=== PATIENT | male | born 1965 | race Caucasian/White ===

== ENCOUNTER 2019-02-16 10:11 | Inpatient (IN) ==
[~2019-02-16 10:11] MED LIST: CloNIDine Tab 0.1 MG TABLET PO ONE; FUROSEMIDE 10 MG/1 ML - 4 ML IVP ONE
--- NOTE | 2019-02-16 10:17 | EKG ---
[address] [address] Measurements Intervals [place] Rate: 70 P: 5 CO: 191 QRS: -11 QRSD: 106 T: 27 QT: 404 QTc: 425 Interpretive Statements SINUS RHYTHM No previous ECG available for comparison Electronically Signed On 02-16-19 13:37:57 MDT by Juanito Jones [email or web address]
[2019-02-16 10:23] LABS: BASOPHILS # (AUTO) 0.02 10*3/UL; BASOPHILS % (AUTO) 0.3 % (0-1); EOSINOPHILS % (AUTO) 1.6 % (0-8); Hematocrit [HCT] 49.1 % (42.0-52.0); Hemoglobin [HGB] 16.4 g/dL (14.0-18.0); LYMPHOCYTES # (AUTO) 1.87 10*3/uL; MEAN CORPUSCULAR HEMOGLOBIN 29.9 PG (27-31); MEAN CORPUSCULAR HGB CONC 33.4 g/dL (33-37); MEAN CORPUSCULAR VOLUME 89.6 FL (80-90); MEAN PLATELET VOLUME 9.9 FL (7.4-12.2); MONOCYTES # (AUTO) 0.61 10*3/UL (0.3-0.8); MONOCYTES % (AUTO) 9.7 % (5-15); NEUTROPHILS # (AUTO) 3.65 10*3/UL; NEUTROPHILS % (AUTO) 58.3 % (50-80); RED BLOOD COUNT 5.48 10^6/uL (4.70-6.10)
[2019-02-16 10:24] LABS: PLATELET MORPHOLOGY COMMENT NORMAL MORPHOLOGY (NORM); RBC MORPHOLOGY COMMENT NORMAL MORPHOLOGY (NORM); WBC MORPHOLOGY COMMENT NORMAL MORPHOLOGY (NORM)
[2019-02-16 10:32] LABS: BLOOD UREA NITROGEN 16 mg/dL (7-22); SERUM ALBUMIN 4.5 g/dL (3.5-4.8)
--- NOTE | 2019-02-16 11:14 | PDOC ---
General Adult HPI - General Chief Complaint: General Medical Stated Complaint: 40 pound weight gain/1 month Date Seen by Provider: 02/16/19 Time Seen by Provider: 10:05 Source: POSITIVE: Patient Exam Limitations: POSITIVE: No limitations Nurse's Notes Reviewed & Considered: Yes - History of Present Illness Initial Comment: The patient is a 54-year-old male who presents to the emergency department with complaints of increased weight gain and edema. He states that he is from [place] and has a history of hypertension. 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 He states that over the past 6 months he has gained 40 or 50 pounds, most of which over the past month or 2. He states that he was drinking salted beer regularly and in large amounts recently. After his legs started swelling up significantly he stopped drinking approximately a week ago. His swelling however has continued to worsen. He does report some increase shortness of breath especially with activity. He denies chest pain. Sonia tejada has been taking lisinopril HCTZ for blood pressure. He denies any significant medical history otherwise. He had initially presented to the walk-in clinic where his blood pressure was significantly elevated in the 200/120 range and he was subsequently referred here to the emergency department for evaluation. He does have a history of smoking however in recent years he has been vaping instead. Have you received a tetanus shot in the past 10 years?: Unknown - Patient Home Medications Home Medications: Home Medications Lisinopril/Hydrochlorothiazide [Lisinopril-Hctz 20-12.5 mg Tab] 1 tab PO DAILY 02/16/19 Lovastatin 1 tab PO DAILY 02/16/19 - Patient Allergies Allergies/Adverse Reactions: Allergies Allergy/AdvReac Type Severity Reaction Status Date / Time No Known Allergies Allergy Verified 02/16/19 11:00 Past Medical History - bozena LOOMIS History: Denies History Cardiovascular History: Hypertension Respiratory History: Denies History Gastrointestinal History: Denies History Genitourinary History: Denies History Endocrine History: Denies History Musculoskeletal History: Denies History Neurological History: Denies History Blood Disorders: Denies History Psychiatric History: Denies History History of Sexually Transmitted Diseases: No Male Reproductive History: Denies History Cancer History: Denies History In Past Year Been Physically Harmed or Verbally Threatened: No History of MDRO: No History of Other Communicable Diseases: No Tobacco Use: Never Smoker Type of alcohol normally used: Beer In the Past 12 Months, Have Used or Abuse Any Substance: None Previous Surgical History: No Anesthesia Reactions: No Malignant Hyperthermia: No Significant Family History: Heart disease, COPD, Diabetes, Hypertension Past Medical History Reviewed: Reviewed - No Changes ROS - Limitations ROS Limitations: No Limitations Constitution: DENIES: Chills, Fever Cardiovascular: REPORTS: Blood Pressure Problem, Edema. DENIES: Chest Pain, Heart Palpitations Respiratory: REPORTS: Shortness Of Breath. DENIES: Cough Non Productive, Cough Productive Neurological: DENIES: Headache, Numbness, Weakness Gastrointestinal: REPORTS: Nausea, Vomitting. DENIES: Abdominal Pain Musculoskeletal: REPORTS: Denies MS Symptoms Genitourinary: REPORTS: Denies Symptoms Eyes: REPORTS: Denies Symptoms ENT: REPORTS: Denies Symptoms Skin: DENIES: Rash General Adult Exam - General Appearance General Appearance: POSITIVE: Alert, Cooperative, No Acute Distress - HEENT HEENT: POSITIVE: Head Inspection Nml, Eyes Inspection Nml, Ears Inspection Nml, Pharynx Inspect. Nml - Neck Neck: POSITIVE: Normal Inspection. NEGATIVE: Lymphadenopathy - Respiratory Respiratory: POSITIVE: No Respiratory Distress, Breath Sounds Normal, Other (Decreased breath sounds bilaterally) - Cardiovascular Cardiovascular: POSITIVE: Regular Rate & Rhythm, No Murmur Peripheral Pulses: Dorsalis-pedis (R): 2+, Dorsalis-pedis (L): 2+ - Abdomen Abdomen: Soft: (All Quadrants), Denies Tenderness: (All Quadrants), No Distention: (All Quadrants) - Back Back: POSITIVE: Normal Inspection - Skin Skin: POSITIVE: Normal Color, No Rash - Extremities Additional Extremities Details: The patient does have marked edema of the lower extremities bilaterally, good results pedis pulses bilaterally General Adult Progress - Results Reviewed by me Xrays/CTs/US Reviewed by me: Yes Discussed with Radiologist: Yes Radiology Findings: Chest x-ray shows cardiomegaly with no other acute findings per radiologist. CT of the chest shows no evidence of PE, evidence of elevated right-sided pressures per radiologist. Ultrasound of both lower extremities are negative for DVT per radiologist. Lab Results Reviewed by Me: Yes Lab Results:: Laboratory Results 02/16/19 02/16/19 02/16/19 10:05 10:05 10:05 WBC 6.26 RBC 5.48 Hgb 16.4 Hct 49.1 MCV 89.6 MCH 29.9 MCHC 33.4 RDW Std Deviation 47.0 RDW Coeff of Alexandro 14.3 Plt Count 225 MPV 9.9 Immature Gran % (Auto) 0.2 Neut % (Auto) 58.3 Lymph % (Auto) 29.9 [place] % (Auto) 9.7 Eos % (Auto) 1.6 Baso % (Auto) 0.3 Immature Gran # (Auto) 0.01 Neut # (Auto) 3.65 Lymph # (Auto) 1.87 [place] # (Auto) 0.61 Eos # (Auto) 0.10 Baso # (Auto) 0.02 WBC Morphology Comment Normal morphology Plt Morphology Comment Normal morphology RBC Morph Comment Normal morphology D-Dimer 311 H Sodium 141 Potassium 4.0 Chloride 99 Carbon Dioxide 29 Anion Gap 13 BUN 16 Creatinine 1.0 Estimated GFR > 60 BUN/Creatinine Ratio 16.00 Glucose 86 Calculated Osmolality 291.0 Lactic Acid Calcium 9.4 Magnesium 1.9 Total Bilirubin 0.3 AST 32 ALT 45 Alkaline Phosphatase 58 Troponin I C-Reactive Protein 1.0 H NT-Pro-B Natriuret Pep 280 H Total Protein 7.9 Albumin 4.5 Globulin 3.4 Albumin/Globulin Ratio 1.30 TSH Ur Collection Type Urine Color Urine Clarity Urine pH Ur Specific Dwarf U Specif Grav (Refrac) Urine Protein Urine Glucose (UA) Urine Ketones Urine Occult Blood Urine Nitrate Urine Bilirubin Urine Urobilinogen Ur Leukocyte Esterase Ur Culture Indicated? Urine Opiates Screen Ur Buprenorphine Ur Oxycodone Screen Urine Methadone Screen Ur Propoxyphene Screen Barbiturate Screen U Tricyclic Antidepress Phencyclidine Screen Amphetamines Screen U Methamphetamines Scrn Benzodiazepines Screen Cocaine Screen U Marijuana (THC) Screen Serum Alcohol 10 02/16/19 02/16/19 02/16/19 10:05 10:05 10:05 WBC RBC Hgb Hct MCV MCH MCHC RDW Std Deviation RDW Coeff of Alexandro Plt Count MPV Immature Gran % (Auto) Neut % (Auto) Lymph % (Auto) [place] % (Auto) Eos % (Auto) Baso % (Auto) Immature Gran # (Auto) Neut # (Auto) Lymph # (Auto) [place] # (Auto) Eos # (Auto) Baso # (Auto) WBC Morphology Comment Plt Morphology Comment RBC Morph Comment D-Dimer Sodium Potassium Chloride Carbon Dioxide Anion Gap BUN Creatinine Estimated GFR BUN/Creatinine Ratio Glucose Calculated Osmolality Lactic Acid 1.0 Calcium Magnesium Total Bilirubin AST ALT Alkaline Phosphatase Troponin I 0.024 C-Reactive Protein NT-Pro-B Natriuret Pep Total Protein Albumin Globulin Albumin/Globulin Ratio TSH 2.45 Ur Collection Type Urine Color Urine Clarity Urine pH Ur Specific Dwarf U Specif Grav (Refrac) Urine Protein Urine Glucose (UA) Urine Ketones Urine Occult Blood Urine Nitrate Urine Bilirubin Urine Urobilinogen Ur Leukocyte Esterase Ur Culture Indicated? Urine Opiates Screen Ur Buprenorphine Ur Oxycodone Screen Urine Methadone Screen Ur Propoxyphene Screen Barbiturate Screen U Tricyclic Antidepress Phencyclidine Screen Amphetamines Screen U Methamphetamines Scrn Benzodiazepines Screen Cocaine Screen U Marijuana (THC) Screen Serum Alcohol 02/16/19 11:07 WBC RBC Hgb Hct MCV MCH MCHC RDW Std Deviation RDW Coeff of Alexandro Plt Count MPV Immature Gran % (Auto) Neut % (Auto) Lymph % (Auto) [place] % (Auto) Eos % (Auto) Baso % (Auto) Immature Gran # (Auto) Neut # (Auto) Lymph # (Auto) [place] # (Auto) Eos # (Auto) Baso # (Auto) WBC Morphology Comment Plt Morphology Comment RBC Morph Comment D-Dimer Sodium Potassium Chloride Carbon Dioxide Anion Gap BUN Creatinine Estimated GFR BUN/Creatinine Ratio Glucose Calculated Osmolality Lactic Acid Calcium Magnesium Total Bilirubin AST ALT Alkaline Phosphatase Troponin I C-Reactive Protein NT-Pro-B Natriuret Pep Total Protein Albumin Globulin Albumin/Globulin Ratio TSH Ur Collection Type Clean catch urine Urine Color Yellow Urine Clarity Clear Urine pH 6.0 Ur Specific Dwarf 1.010 U Specif Grav (Refrac) 1.010 Urine Protein Negative Urine Glucose (UA) Negative Urine Ketones Negative Urine Occult Blood Negative Urine Nitrate Negative Urine Bilirubin Negative Urine Urobilinogen 0.2 Ur Leukocyte Esterase Negative Ur Culture Indicated? Culture not set Urine Opiates Screen Negative Ur Buprenorphine Negative Ur Oxycodone Screen Negative Urine Methadone Screen Negative Ur Propoxyphene Screen Negative Barbiturate Screen Negative U Tricyclic Antidepress Negative Phencyclidine Screen Negative Amphetamines Screen Negative U Methamphetamines Scrn Negative Benzodiazepines Screen Negative Cocaine Screen Negative U Marijuana (THC) Screen Negative Serum Alcohol CBC and BMP: 02/16/19 10:05 02/16/19 10:05 EKG Interpreted/Reviewed By Me:: Yes EKG Interpretation:: POSITIVE: Normal Sinus Rhythm, Normal Rate, Normal QRS, Normal ST/T, Other (Minimal criteria for LVH) - Patient's Progress MDM / ED Course: On arrival the patient's blood pressure was 242/143. His oxygen saturations were 85% on room air. He was placed on O2 per nasal cannula. The patient does have marked edema in the lower extremities and is relatively asymptomatic otherwise. An IV was established. The patient did receive clonidine 0.1 mg by mouth as well as Lasix 40 mg IV. Chest x-ray showed cardiomegaly with no other acute findings per radiologist. EKG shows normal sinus rhythm with some criteria for LVH, no acute ST segment or T-wave changes. Blood work reveals a normal troponin, normal CBC, normal CMP. His BNP is only mildly elevated at 280. His blood pressure came down primarily into the 180s over 110s after administration of initial medications. His d-dimer ended up being mildly elevated at 300. Subsequent CTA of the chest shows no evidence of PE, evidence of right-sided heart failure per radiologist. Bilateral lower extremity ultrasound showed no evidence of DVT. His oxygen saturations remained in the upper 80s to mid-80s on room air and were maintained in the mid 90s on 2 L. Decision was made to admit the patient for further diuresis and blood pressure control. I did discuss these findings and recommendations with the patient and he is in agreement with this plan. I also discussed the patient with Dr. Norris and he has agreed to admit the patient for further care. He did recommend that the patient receive lisinopril 40 mg. - Consult Counseled: POSITIVE: Patient, RE: Lab Results, RE: Radiology Results, RE: DX, RE: Need for F/U Patient Care Time - Estimated PCT Patient Care Time (In Minutes): 50 Vital Signs - Recent Vital Signs Vital Signs: Vital Signs (Last 8 hours) Temp Pulse Pulse Resp BP Pulse Ox 02/16/19 10:56 95 02/16/19 10:00 97.2 F 80 80 24 242/143 85 - VS Reviewed Vital Signs Reviewed: Yes Discharge Clinical Impression: Right-sided heart failure, Edema, Hypoxia, Hypertensive CHF Discharge Disposition: Discharged to Home Condition: Fair Follow Up With: NONE,NONE [Primary Care Provider] - Date Decision to Admit to Inpatient: 02/16/19 Time Decision to Admit to Inpatient: 14:00
[2019-02-16 11:24] LABS: BILIRUBIN,URINE NEGATIVE (NEG); CLARITY,URINE CLEAR (CLEAR); COLOR,URINE YELLOW (Y); GLUCOSE, URINE (UA) NEGATIVE (NEG); OCCULT BLOOD,URINE NEGATIVE (NEG); PROTEIN,URINE NEGATIVE (NEG); UROBILINOGEN,URINE 0.2 EU/dL (0.2)
[2019-02-16 11:32] LABS: URINE SAMPLE TYPE CLEAN CATCH URINE
[2019-02-16 11:33] LABS: AMPHETAMINE SCREEN NEGATIVE (NEG); CANNABINOID SCREEN,URINE NEGATIVE (NEG); COCAINE SCREEN NEGATIVE (NEG); METHADONE URINE SCREEN NEGATIVE (NEG); METHAMPHETAMINES SCREEN,URINE NEGATIVE (NEG); OPIATE SCREEN,URINE NEGATIVE (NEG)
--- NOTE | 2019-02-16 12:05 | DI ---
AP CHEST X-RAY, 02/16/2019 10:07 AM : Clinical History: Hypoxia. Previous Exam: None at this facility. Soft Tissues: No acute soft tissue abnormality. On this view, the patient took a shallow inspiration. Bones: Normal. Heart: Even for the shallow inspiratory effort, there is cardiomegaly. There is no evidence of left-s ided failure, but the azygos vein and superior vena cava silhouette are prominent and right heart lewis lure cannot be excluded. Lungs: No infiltrates. There is increased tortuosity of the vessels with suggestion of segmentation a long with increased interstitial markings. These findings are quite suggestive of chronic bronchitis. Effusion(s): None. Mediastinum: There may be pulmonary arterial hypertension. Nodules: No pulmonary nodules. Readin. No acute infiltrate or effusion. 2. Cardiomegaly. There are findings are suggestive of right heart failure and moderate chronic bronc hitis. These radiographic findings should be correlated with the clinical presentation and findings.
--- NOTE | 2019-02-16 13:37 | DI ---
CT ANGIOGRAM OF THE CHEST, 02/16/2019 11:47 AM : Clinical History: Hypoxia. Elevated D-dimer test. Previous Exam: None at this facility. Technique: Scans from base of neck to lung bases with IV contrast. Bolus tracking protocol was used f or timing the injection. Non-MIPS and MIPS sagittal/coronal images generated. IV Contrast: 70 mL of Ultravist 370. Base of Neck: Normal. Nodes: Normal axillary, supraclavicular, mediastinal, and hilar lymph nodes. Heart: Normal. Small isolated calcifications in the proximal and middle thirds of the LAD. Aorta: Normal thoracic aorta. No aneurysm or dissection. Pulmonary Arteries: No pulmonary emboli or infarcts; there is pulmonary hypertension. SVC/IVC and Azygos Vein: The azygos vein is prominent. SVC and IVC are distended but have a normal ca liber. There is no tricuspid insufficiency. Lungs: No infiltrates. Effusion(s): None. Nodules: None. Bony Structures: Normal visualized portions of ribs, sternum, scapulae, clavicles, and shoulders. Nor mal visualized portions of thoracic spine. Limited Upper Abdomen: Normal adrenal glands and spleen. Normal limited views of the pancreas. The li leigh ann has low density indicating diffuse fatty infiltration, mild. READIN. Normal CTA of the chest. There are no pulmonary emboli or pulmonary infarcts. There is pulmonary arterial hypertension. 2. The azygos vein is prominent in caliber and this may reflect right heart failure. This finding sh ould be correlated with the clinical heart findings.
--- NOTE | 2019-02-16 13:44 | DI ---
VENOUS DOPPLER ULTRASOUND OF BOTH LOWER EXTREMITIES, 02/16/2019 11:47 AM: Clinical History: Leg edema. Elevated D-dimer test. Previous Exam: None. Technique: 2D real-time imaging and color Doppler ultrasound with compression and augmentation maneuv ers. Deep Venous System: Normal deep venous system from groin to popliteal fossa bilaterally. Superficial Venous System: Normal greater saphenous vein bilaterally. Additional Findings: There is edema of the subcutaneous fat in both lower legs. Reading: Negative venous Doppler ultrasound of both lower extremities for deep vein thrombosis.
[2019-02-16] MEDS ORDERED: LISINOPRIL 10 MG TABLET PO ONE (14:02)
[2019-02-16] MEDS ORDERED: LIDOCAINE HCL 2 % 10 ML JELLY URO-JECT TOPICAL PRN ×2 (15:04→16:12)
--- NOTE | 2019-02-16 15:20 | PDOC ---
HPI - History of Present Illness History of Present Illness: This very nice 54-year-old gentleman is from [place] is an scudding inspector with the pipeline here he has a history of hypertension comes into the ER because over the last the 6 month she's gained 50 pounds and his lower extremities have been more edematous presented to the ER with blood pressure 200/120 he was given clonidine and lisinopril blood pressure was better on the control. No chest pain or headaches he has +4 pitting edema never been evaluate d the for heart failure he also has morbid obesity As a history of smoking but lately is been vaping Past Medical History Medical History: Hypertension Tobacco Use: Former Smoker In the Past 12 Months, Have Used or Abuse Any of the Following Substance: None Alcohol Use: Occasionally Medication / Allergies Home Medications: Home Medications 3 Medication Instructions Recorded Confirmed Lisinopril/Hydrochlorothiazide 1 tab PO DAILY 02/16/19 02/16/19 [Lisinopril-Hctz 20-12.5 mg Tab] Lovastatin 1 tab PO DAILY 02/16/19 02/16/19 Allergies/Adverse Reactions: Allergies Allergy/AdvReac Type Severity Reaction Status Date / Time No Known Allergies Allergy Verified 02/16/19 11:00 Review of Systems - Review of Systems All Systems: Reviewed & No Additional Complaints Except as Stated - Respiratory Respiratory: DENIES: Negative System Review, Cough, Sputum, Dyspnea At Rest, Dyspnea with Exertion, Pleuritic Pain, Hemoptysis, Wheezing, Other, See HPI - Cardiovascular Cardiovascular: DENIES: Negative System Review, Chest Pain, Edema, Syncope, Palpitations, Orthopnea, Paroxysmal Nocturnal Dyspnea, Other, See HPI - Gastrointestinal Gastrointestinal / Abdominal: DENIES: Negative System Review, Nausea, Vomiting, Diarrhea, Constipation, Abdominal Pain, Bloody Stool, Poor Appetite, Heartburn, Regurgitation, Bloating, Lactose Intolerance, Melena, Bright Red Blood per Rectum, Other, See HPI Exam - Vitals Vital Signs: Vital Signs Temperature 97.2 F Temperature Source Temporal Artery Scan Pulse Rate [Telemetry] 80 Pulse Rate 80 Respiratory Rate 24 Blood Pressure [Left Arm] 242/143 Pulse Ox 95 Oxygen Flow Rate 2 Oxygen Delivery Method Room Air Height 5 ft 7 in Weight 337 lb - General General Appearance: No Acute Distress, Cooperative, Obese - Head Head Exam: Normal Inspection, Normocephalic, Atraumatic - Eye Eye Exam: POSITIVE: Normal Appearance, PERRL, EOMI, No Scleral Icterus - Respiratory Respiratory Exam: POSITIVE: Clear to Auscultation - Bilaterally, Breathing Non Labored, Normal To Percussion, Normal to Percussion and Palpation - Cardiovascular Cardiovascular Exam: POSITIVE: RRR, No Murmur, No Clicks, No Gallops, No Rubs, PMI Non-Displaced - GI/Abdominal GI/Abdominal Exam: POSITIVE: Normal Bowel Sounds, Non Tender, Non Distended, Soft, No Masses, No Hepatomegaly, No Splenomegaly, No Organomegaly - Extremities Extremities Exam: POSITIVE: +3 Edema Results - Labs CBC and BMP: 02/16/19 10:05 02/16/19 10:05 Assessment and Plan - Patient Problems (1) Edema Current Visit: Yes Status: Acute Comment: +4 edema most likely congestive heart failure elevated BNP will need an echo to find out about his pulmonary hypertension for either right heart failure or left heart failure I do not have those capabilities here hopefully a tech will come in next week otherwise he will have to get this as outpatient Lasix drip for now patient refuses Trevino is been using the bathroom and I told the nurses we need accurate output measurements as well Code(s): R60.9 - Edema, unspecified (2) Hypertensive CHF Current Visit: Yes Status: Acute Comment: Patient received lisinopril 40+ Norvasc 10 mg pressures now controlled Code(s): I11.0 - Hypertensive heart disease with heart failure (3) Hypoxia Current Visit: Yes Status: Acute Comment: Most likely secondary to emphysema also will need PFTs as an evaluation as well as an outpatient he's been here for 6 months working on the pipeline may be as an outpatient in a week and we will come up with a primary care physician or cable puller Code(s): R09.02 - Hypoxemia (4) Right-sided heart failure Current Visit: Yes Status: Acute Comment: Lasix drip blood pressure control also probably needs a sleep study make sure he does not have sleep apnea Code(s): I50.810 - Right heart failure, unspecified
[2019-02-16] MEDS ORDERED: LIDOCAINE W/ SODIUM BICARB 0.5 ML SYR SUBD PRN (16:12)
[2019-02-16] MEDS: HEPARIN 5000 UNIT/1 ML SUBCUT SCH ×2 (17:04→23:37)
[2019-02-16] MEDS ORDERED: Zolpidem Tab 5 MG TAB PO PRN (20:04)
[2019-02-17] MEDS ORDERED: FUROSEMIDE 10 MG/1 ML - 10 ML ONE (02:58)
[2019-02-17 04:43] LABS: BUN/CREATININE RATIO 19.23 (6-20)
[2019-02-17] MEDS: HEPARIN 5000 UNIT/1 ML SUBCUT SCH ×2 (08:30→15:57)
[2019-02-17] MEDS: LISINOPRIL 20 MG TABLET PO SCH (08:30)
[2019-02-17] MEDS ORDERED: LISINOPRIL 5 MG TABLET PO SCH (09:00)
--- NOTE | 2019-02-17 10:42 | PDOC(PROG) ---
Interval History: Patient states that his breathing is improved some also his edema in his legs are better. We have discussed. The reasons for inserting a Trevino catheter for accurate output patient refused this and he did not the PE in the bottle and went to the bathroom 2 or 3 times without the possibility of recording I told him I do not have an accurate urinary output at this time I again suggested Trevino would be nice with a Lasix drip to know if it is working or not. I also suggested that he be transferred to [facility] where there is cardiology and echo capability to evaluate his heart failure. He said that he does not want to go to [facility] present time and will like to get this workup done as an outpatient. I told him that his creatinine is starting to bump a little this happens when we diurese people with Lasix and if this is would be the case and would have to stop the diuresis. And again suggested he think about very strongly about being transferred to [facility] where cardiology is available tomorrow we will repeat labs and again the we would have another discussion about this. Denies chest pain nausea or vomiting he said he will PE in the bottle today and maybe will have a more accurate reading on the output as well troponins were negative Objective : Data - Labs CBC and BMP: 02/16/19 10:05 02/17/19 04:20 Objective : Exam - General General Appearance: Cooperative - Respiratory Respiratory Exam: Clear to Auscultation - Bilaterally, Breathing Non Labored, Normal To Percussion, Normal to Percussion and Palpation - Cardiovascular Cardiovascular Exam: RRR, No Murmur, No Clicks, No Gallops, No Rubs, PMI Non-Displaced - GI/Abdominal GI/Abdominal Exam: Normal Bowel Sounds, Non Tender, Non Distended, Soft, No Masses, No Hepatomegaly, No Splenomegaly, No Organomegaly - Extremities Extremities Exam: +3 Edema Assessment and Plan - Patient Problems (1) Hypertensive CHF Current Visit: Yes Status: Acute Comment: Please see HPI Code(s): I11.0 - Hypertensive heart disease with heart failure (2) Edema Current Visit: Yes Status: Acute Code(s): R60.9 - Edema, unspecified (3) Hypoxia Current Visit: Yes Status: Acute Code(s): R09.02 - Hypoxemia (4) Right-sided heart failure Current Visit: Yes Status: Acute Comment: Most likely clinically his hypoxia and edema are both related to congestive heart failure please see HPI Code(s): I50.810 - Right heart failure, unspecified
[2019-02-18] MEDS: HEPARIN 5000 UNIT/1 ML SUBCUT SCH ×3 (00:51→16:25)
[2019-02-18 04:52] LABS: BASOPHILS # (AUTO) 0.04 10*3/UL; BASOPHILS % (AUTO) 0.6 % (0-1); EOSINOPHILS # (AUTO) 0.17 10*3/UL; EOSINOPHILS % (AUTO) 2.5 % (0-8); Hematocrit [HCT] 49.1 % (42.0-52.0); Hemoglobin [HGB] 15.8 g/dL (14.0-18.0); LYMPHOCYTES # (AUTO) 1.81 10*3/uL; MEAN CORPUSCULAR HEMOGLOBIN 29.9 PG (27-31); MEAN CORPUSCULAR HGB CONC 32.2 g/dL (33-37); MEAN PLATELET VOLUME 9.9 FL (7.4-12.2); MONOCYTES # (AUTO) 0.91 10*3/UL (0.3-0.8); MONOCYTES % (AUTO) 13.5 % (5-15); NEUTROPHILS # (AUTO) 3.81 10*3/UL; NEUTROPHILS % (AUTO) 56.5 % (50-80); RED BLOOD COUNT 5.28 10^6/uL (4.70-6.10)
[2019-02-18 05:04] LABS: BUN/CREATININE RATIO 19.33 (6-20); SERUM ALBUMIN 4.1 g/dL (3.5-4.8)
[2019-02-18 05:07] LABS: PLATELET MORPHOLOGY COMMENT NORMAL MORPHOLOGY (NORM); RBC MORPHOLOGY COMMENT NORMAL MORPHOLOGY (NORM); WBC MORPHOLOGY COMMENT NORMAL MORPHOLOGY (NORM)
[2019-02-18 06:52] VITALS: RESP 20
[2019-02-18] MEDS ORDERED: POTASSIUM CHLORIDE 20 MEQ TAB PO SCH (09:00)
[2019-02-18] MEDS: LISINOPRIL 20 MG TABLET PO SCH (09:13)
[2019-02-18 13:16] VITALS: TEMP 97.4
--- NOTE | 2019-02-18 15:46 | DCSUMMARY ---
Hospitalization Summary Admit Date: 02/16/2019 Discharge Date: 02/18/19 Primary Diagnosis:: pulmonary hypertension with acute right-sided CHF Hospital Course: 3 pleasant 54-year-old male who presented with a 50 pound weight gain over the last few months, he was found to be in acute congestive heart failure, likely right-sided. He was placed on a Lasix drip, oxygen, and lost over 10 pounds during the hospital stay. It is difficult to measure accurate input and output as the patient did not want a Trevino catheter placed. He stated to me today that he felt significantly better from admission. He was quite concerned that he might have sleep apnea and was concerned about how to lose weight. We talked about dietary changes for weight loss. We talked about getting a sleep study as an outpatient. We do not have the ability to do an echocardiogram in patient except for Wednesdays and Fridays and with weather this moment, it is not clear whether we'll be able to do any echocardiogram studies this Monday. I think this can be done on an outpatient basis, and I think the patient could go home on continued antihypertensive control, oxygen therapy, and Lasix with potassium supplementation as necessary. Today, the patient denies chest pain, shortness breath, nausea or vomiting and he states he feels much better. He would like to go home and return to work. We also talked about quitting vapor as he used to smoke but used paper for the last 4 years. He stated he would try to do so. Assessment and Plan: 1. As per discharge assessments noted 2. Disposition: Patient is discharged home. 3. Condition on discharge, stable and improved. 4. Diet: regular diet, primarily vegetable-based if possible. 5. Activities: Resume work. I would suggest oxygen 18 out of 24 hours today. Strongly suggested getting a sleep study 6. Follow-Up: 1. Primary care provider in one week 2. 7. Medications at the Time of Discharge: Home Medications Medication Instructions Recorded Confirmed Lovastatin 1 tab PO DAILY 02/16/19 02/16/19 Furosemide [Lasix] 40 mg PO DAILY #30 tablet 02/18/19 Lisinopril [Prinivil Tab] 40 mg PO DAILY #60 tab 02/18/19 Potassium Chloride [Klor-Con] 20 meq PO DAILY #30 tab 02/18/19 8. Time, care, counseling and coordination of care for this discharge is greater than 30 minutes. Exam - Vitals Vital Signs: Vital Signs Temperature 97.4 F Temperature Source Temporal Artery Scan Pulse Rate [Pulse Oximeter] 75 Pulse Rate [Apical] 84 Pulse Rate [Telemetry] 87 Pulse Rate [right hand] 75 Pulse Rate 67 Respiratory Rate 20 Blood Pressure [Right Arm] 135/74 Blood Pressure [Right Radial 150/79 Artery] Blood Pressure [Left Arm] 146/83 Blood Pressure 187/141 Pulse Ox [right hand] 94 Pulse Ox 94 Oxygen Flow Rate [right hand] 2 Oxygen Flow Rate 2 Oxygen Delivery Method [right Nasal Cannula hand] Oxygen Delivery Method Nasal Cannula Height 5 ft 7 in Weight 325 lb 6.4 oz - General General Appearance: No Acute Distress, Cooperative - Head Head Exam: Normal Inspection, Normocephalic, Atraumatic - Eye Eye Exam: POSITIVE: No Scleral Icterus - ENT ENT Exam: POSITIVE: Mucous Membranes Moist - Neck Neck Exam: JVP is not Raised - Respiratory Respiratory Exam: POSITIVE: Breathing Non Labored, Decreased Breath Sounds - Cardiovascular Cardiovascular Exam: POSITIVE: RRR, No Murmur, No Clicks, No Gallops, No Rubs, No JVD - GI/Abdominal GI/Abdominal Exam: POSITIVE: Normal Bowel Sounds, Non Tender, Non Distended, Soft - Extremities Extremities Exam: POSITIVE: No Clubbing Present, No Cyanosis Present, +2 Edema - Neurological Neurological Exam: POSITIVE: Alert, Oriented x 3, No Facial Droop, Speech Intact / Clear, Moves All Extremities Equally - Psychiatric Psychiatric Exam: POSITIVE: Normal Affect, Normal Mood Data Peritnent Studies: 02/16/19 02/16/19 02/16/19 10:05 10:05 10:05 WBC Hgb Hct Plt Count D-Dimer 311 H Sodium Potassium Chloride Carbon Dioxide Anion Gap BUN Creatinine Estimated GFR BUN/Creatinine Ratio Glucose Calculated Osmolality Calcium Magnesium Total Bilirubin AST ALT Alkaline Phosphatase Troponin I 0.024 NT-Pro-B Natriuret Pep 280 H Ur Culture Indicated? 02/16/19 02/16/19 02/16/19 11:07 16:12 22:09 WBC Hgb Hct Plt Count D-Dimer Sodium Potassium Chloride Carbon Dioxide Anion Gap BUN Creatinine Estimated GFR BUN/Creatinine Ratio Glucose Calculated Osmolality Calcium Magnesium Total Bilirubin AST ALT Alkaline Phosphatase Troponin I 0.022 0.022 NT-Pro-B Natriuret Pep Ur Culture Indicated? Culture not set 02/18/19 02/18/19 04:19 04:19 WBC 6.75 Hgb 15.8 Hct 49.1 Plt Count 226 D-Dimer Sodium 142 Potassium 3.7 L Chloride 95 L Carbon Dioxide 34 H Anion Gap 13 BUN 29 H Creatinine 1.5 Estimated GFR 49 BUN/Creatinine Ratio 19.33 Glucose 99 Calculated Osmolality 299.0 H Calcium 8.5 L Magnesium 2.2 Total Bilirubin 0.5 AST 30 ALT 40 Alkaline Phosphatase 53 Troponin I NT-Pro-B Natriuret Pep Ur Culture Indicated? Procedures: [address] [facility]. [facility] [place] [id number] PH: DD: [phone] FAX: [phone] ~DIAGNOSTIC IMAGING REPORT~ -------- Patient: Lui Bronson : 1965 Sex: M Age: 54 Exam Name: CT CTA Chest Non-Coronary [facility] Exam Date: 02/16/19 Report # : [id number] CPT Code: 75108 EMR/MR #: [id number] Ordering: KEVIN ROJAS Admiting: Primary: NONE,NONE Attending: Signed CT ANGIOGRAM OF THE CHEST, 02/16/2019 11:47 AM : Clinical History: Hypoxia. Elevated D-dimer test. Previous Exam: None at this facility. Technique: Scans from base of neck to lung bases with IV contrast. Bolus tracking protocol was used for timing the injection. Non-MIPS and MIPS sagittal/coronal images generated. IV Contrast: 70 mL of Ultravist 370. Base of Neck: Normal. Nodes: Normal axillary, supraclavicular, mediastinal, and hilar lymph nodes. Heart: Normal. Small isolated calcifications in the proximal and middle thirds of the LAD. Aorta: Normal thoracic aorta. No aneurysm or dissection. Pulmonary Arteries: No pulmonary emboli or infarcts; there is pulmonary hypertension. SVC/IVC and Azygos Vein: The azygos vein is prominent. SVC and IVC are distended but have a normal caliber. There is no tricuspid insufficiency. Lungs: No infiltrates. Effusion(s): None. Nodules: None. Bony Structures: Normal visualized portions of ribs, sternum, scapulae, clavicles, and shoulders. Normal visualized portions of thoracic spine. Limited Upper Abdomen: Normal adrenal glands and spleen. Normal limited views of the pancreas. The liver has low density indicating diffuse fatty infiltration, mild. READIN. Normal CTA of the chest. There are no pulmonary emboli or pulmonary infarcts. There is pulmonary arterial hypertension. 2. The azygos vein is prominent in caliber and this may reflect right heart failure. This finding should be correlated with the clinical heart findings. Dictated By: 02/16/19 1323 GARDENIA PORTILLO MD. Signed By: [address] [facility] [place] [id number] PH: DD: [phone] FAX: [phone] ~DIAGNOSTIC IMAGING REPORT~ Patient: Lui Bronson : 1965 Sex: M Age: 54 Exam Name: US Veins, UE/LE Bilat Exam Date: 02/16/19 Report # : [id number] CPT Code: 50584 EMR/MR #: [id number] Ordering: KEVIN ROJAS Admiting: Primary: NONE,NONE Attending: Signed VENOUS DOPPLER ULTRASOUND OF BOTH LOWER EXTREMITIES, 02/16/2019 11:47 AM: Clinical History: Leg edema. Elevated D-dimer test. Previous Exam: None. Technique: 2D real-time imaging and color Doppler ultrasound with compression and augmentation maneuvers. Deep Venous System: Normal deep venous system from groin to popliteal fossa bilaterally. Superficial Venous System: Normal greater saphenous vein bilaterally. Additional Findings: There is edema of the subcutaneous fat in both lower legs. Reading: Negative venous Doppler ultrasound of both lower extremities for deep vein thrombosis. Dictated By: 02/16/19 1339 GARDENIA PORTILLO MD. Signed By: 02/16/19 1344 GARDENIA PORTILLO MD. Patient Problems - Patient Problem List (1) Right-sided heart failure Current Visit: Yes Status: Acute Code(s): I50.810 - Right heart failure, unspecified Qualifiers: Heart failure chronicity: acute Qualified Code(s): I50.811 - Acute right heart failure Category: Medical (2) Hypoxia Current Visit: Yes Status: Acute Code(s): R09.02 - Hypoxemia Category: Medical (3) Hypertension Current Visit: Yes Status: Acute Code(s): I10 - Essential (primary) hypertension Qualifiers: Hypertension type: essential hypertension Qualified Code(s): I10 - Essential (primary) hypertension Category: Medical (4) Edema Current Visit: Yes Status: Acute Code(s): R60.9 - Edema, unspecified Qualifiers: Edema type: unspecified Qualified Code(s): R60.9 - Edema, unspecified Category: Medical
[2019-02-18 16:42] VITALS: BP 126/82; O2SAT 92
== END 2019-02-18 17:55 | disposition home or self-care (01) | DRG 176 ==
LOC: ER 10:11 → MED/SURG 15:20
PROVIDERS: ADMIT Internal Medicine; ATTEND Internal Medicine